=== PATIENT | female | born 1985 | race Caucasian/White ===

== ENCOUNTER 2016-08-12 14:10 | Inpatient (IN) | payer MEDICAID ==
--- NOTE | 2016-08-12 14:48 | EDPHY ---
H & P Smoking Status: Never smoked Time Seen by Provider: 08/12/16 14:17 HPI/ROS: Chief complaint. Abdominal pain HPI. 31-year-old female presents with abdominal pain nausea and vomiting for 1 and half months however worse today. Slight diarrhea. She describes right- sided crampy abdominal pain worse with movement. Decreased oral intake. No fever. No urinary symptoms. She carries a diagnosis of loin pain hematuria syndrome. ROS Constitutional. no fever/chills, no weakness Eyes. no problems with vision ENT. no sore throat, no nasal drainage Cardiovascular. no chest pain Respiratory. no shortness of breath, no cough Abdominal. Right mid abdominal pain with nausea vomiting and diarrhea . no problems urinating MS. no calf pain/swelling, no neck/back pain, no joint pain Skin. no rash Lymph. no swollen glands Neuro. no headache, no dizziness, no difficulty walking or with speech (Soto Bell) Past Medical/Surgical History: Chronic abdominal pain, seizure disorder (Soto Bell) Social History: Single, nonsmoker, no alcohol (Soto Bell) Physical Exam: General Appearance: Alert well-developed female moderate distress vital signs are stable Eyes: Pupils equal and round no pallor or injection. ENT, Mouth: Mucous membranes are moist. Respiratory: There are no retractions, lungs are clear to auscultation. Cardiovascular: Regular rate and rhythm. Gastrointestinal: Abdomen is soft with tenderness especially on the right side of the abdomen. No masses. Normal bowel sounds Neurological: Awake and alert, sensory and motor exams grossly normal. Skin: Warm and dry, no rashes. Musculoskeletal: Neck is supple nontender. Extremities symmetrical, full range of motion. Psychiatric: Patient is oriented X 3, there is no agitation. (Soto Bell) Constitutional: Initial Vital Signs Temperature (C) 36.9 C 08/12/16 14:22 Heart Rate 99 08/12/16 14:22 Respiratory Rate 18 08/12/16 14:22 Blood Pressure 140/100 H 08/12/16 14:22 O2 Sat (%) 99 08/12/16 14:22 O2 Delivery Mode Room Air Allergies/Adverse Reactions: nickel Allergy (Verified 08/12/16 14:20) Sulfa (Sulfonamide Antibiotics) Allergy (Verified 08/12/16 14:20) Home Medications: Medication Instructions Recorded Ambien 08/12/16 Fentanyl Patch 08/12/16 GABAPENTIN 08/12/16 Keppra 08/12/16 Oxycodone 08/12/16 Xanaflex 08/12/16 Zofran 08/12/16 Medical Decision Making - Diagnostics Imaging: Study: CT of the abdomen and pelvis Indication: Pain, vomiting Results: CT scan of the abdomen and pelvis was obtained. The results of the study are: 1. Minimal pericardial effusion. 2. No CT evidence of appendicitis, abscess or bowel obstruction. The study was read by the radiologist, Dr. Cameron Chavez. I viewed the images myself on the PACS system. (Roderick Khoury) Procedures: IV normal saline. 1 L of saline given. Reglan and Benadryl IV (Soto Bell) ED Course/Re-evaluation: 1541: Care of this patient was transferred to ar by Dr. Soto Bell at change of shift. 1639: Imaging results reported to me by Dr. Cameron Chavez, radiologist, who reports nothing acute. 1656: I shared imaging results with the patient. On reevaluation, the patient continues to complain of severe abdominal pain. Will administer 10mg IV Ketamine and 30mg IV Ketoralac for pain and continue to monitor here in the ED. Additional 1L IV NS administered. 1732: On reevaluation, the patient feels moderately improved with less abdominal pain than previously. Will administer 1mg IV Ativan and additional 10mg IV Ketamine for pain. 1752: On reevaluation the patient's pain has improved but she continues to complain of nausea. She is unable to sip water without vomiting. Plan for admission given the patient's intractable nausea. 1753: Consultation with Dr. Nisha Martínez, hospitalist, who accepts admission. ( Roderick Khoury) Care Turn Over: Dr. Khoury at 3:15 p.m. (Soto Bell) - Data Points Laboratory Results: Laboratory Results 08/12/16 15:00 08/12/16 15:00 08/12/16 08/12/16 08/12/16 15:30 15:00 15:00 WBC RBC Hgb Hct MCV MCH MCHC RDW Plt Count MPV Neut % (Auto) Lymph % (Auto) [place] % (Auto) Eos % (Auto) Baso % (Auto) Nucleat RBC Rel Count Absolute Neuts (auto) Absolute Lymphs (auto) Absolute Monos (auto) Absolute Eos (auto) Absolute Basos (auto) Absolute Nucleated RBC Immature Gran % Immature Gran # Sodium 142 mEq/L mEq/L (134-144) Potassium 4.0 mEq/L mEq/L (3.5-5.2) Chloride 104 mEq/L mEq/L (97-110) Carbon Dioxide 17 mEq/l L mEq/l (22-31) Anion Gap 21 mEq/L H mEq/L (8-16) BUN 10 mg/dL mg/dL (7-23) Creatinine 0.6 mg/dL mg/dL (0.6-1.0) Estimated GFR > 60 Glucose 90 mg/dL mg/dL (70-100) Calcium 10.8 mg/dL H mg/dL (8.5-10.4) Phosphorus 1.9 mg/dL L mg/dL (2.5-4.5) Total Bilirubin 1.0 mg/dL mg/dL (0.1-1.4) Conjugated Bilirubin 0.5 mg/dL mg/dL (0.0-0.5) Unconjugated Bilirubin 0.5 mg/dL mg/dL (0.0-1.1) AST 41 IU/L IU/L (14-46) ALT 47 IU/L IU/L (9-52) Alkaline Phosphatase 122 IU/L IU/L (38-126) Total Protein 8.5 g/dL H g/dL (6.3-8.2) Albumin 5.6 g/dL H g/dL (3.5-5.0) Lipase 108.0 IU/L IU/L (23-300) Beta HCG, Qual NEGATIVE Urine Color YELLOW Urine Appearance CLEAR Urine pH 5.0 (5.0-7.5) Ur Specific [place] 1.021 (1.002-1.030) Urine Protein 1+ H (NEGATIVE) Urine Ketones 2+ H (NEGATIVE) Urine Blood 2+ H (NEGATIVE) Urine Nitrate NEGATIVE (NEGATIVE) Urine Bilirubin NEGATIVE (NEGATIVE) Urine Urobilinogen NEGATIVE EU EU (0.2-1.0) Ur Leukocyte Esterase NEGATIVE (NEGATIVE) Urine RBC 1-3 /hpf /hpf (0-3) Urine WBC NONE SEEN /hpf /hpf (0-3) Ur Epithelial Cells TRACE /lpf /lpf (NONE-1+) Urine Mucus TRACE /lpf /lpf (NONE-1+) Ur Culture Indicated? NOT INDICATED (NI) Urine Glucose NEGATIVE (NEGATIVE) 08/12/16 15:00 WBC 7.66 10^3/uL 10^3/uL (3.80-9.50) RBC 5.52 10^6/uL H 10^6/uL (4.18-5.33) Hgb 15.7 g/dL g/dL (12.6-16.3) Hct 45.9 % % (38.0-47.0) MCV 83.2 fL fL (81.5-99.8) MCH 28.4 pg pg (27.9-34.1) MCHC 34.2 g/dL g/dL (32.4-36.7) RDW 12.0 % % (11.5-15.2) Plt Count 221 10^3/uL 10^3/uL (150-400) MPV 10.6 fL fL (8.7-11.7) Neut % (Auto) 87.1 % H % (39.3-74.2) Lymph % (Auto) 9.3 % L % (15.0-45.0) [place] % (Auto) 2.9 % L % (4.5-13.0) Eos % (Auto) 0.0 % L % (0.6-7.6) Baso % (Auto) 0.4 % % (0.3-1.7) Nucleat RBC Rel Count 0.0 % % (0.0-0.2) Absolute Neuts (auto) 6.68 10^3/uL H 10^3/uL (1.70-6.50) Absolute Lymphs (auto) 0.71 10^3/uL L 10^3/uL (1.00-3.00) Absolute Monos (auto) 0.22 10^3/uL L 10^3/uL (0.30-0.80) Absolute Eos (auto) 0.00 10^3/uL L 10^3/uL (0.03-0.40) Absolute Basos (auto) 0.03 10^3/uL 10^3/uL (0.02-0.10) Absolute Nucleated RBC 0.00 10^3/uL 10^3/uL (0-0.01) Immature Gran % 0.3 % % (0.0-1.1) Immature Gran # 0.02 10^3/uL 10^3/uL (0.00-0.10) Sodium Potassium Chloride Carbon Dioxide Anion Gap BUN Creatinine Estimated GFR Glucose Calcium Phosphorus Total Bilirubin Conjugated Bilirubin Unconjugated Bilirubin AST ALT Alkaline Phosphatase Total Protein Albumin Lipase Beta HCG, Qual Urine Color Urine Appearance Urine pH Ur Specific [place] Urine Protein Urine Ketones Urine Blood Urine Nitrate Urine Bilirubin Urine Urobilinogen Ur Leukocyte Esterase Urine RBC Urine WBC Ur Epithelial Cells Urine Mucus Ur Culture Indicated? Urine Glucose Medications Given: Discontinued Medications Diphenhydramine HCl (Benadryl Injection) 25 mg IVP EDNOW ONE Stop: 08/12/16 15:12 Last Admin: 08/12/16 15:19 Dose: 25 mg Sodium Chloride (Ns) 1,000 mls @ 0 mls/hr IV ONCE ONE PRN Reason: Wide Open Stop: 08/12/16 15:11 Last Admin: 08/12/16 15:19 Dose: 1,000 mls Sodium Chloride (Ns) 1,000 mls @ 0 mls/hr IV ONCE ONE PRN Reason: Wide Open Stop: 08/12/16 17:14 Last Admin: 08/12/16 17:14 Dose: 1,000 mls Ketamine HCl (Ketamine) 10 mg IVP EDNOW ONE Stop: 08/12/16 16:57 Last Admin: 08/12/16 17:13 Dose: 10 mg Ketamine HCl (Ketamine) 10 mg IVP EDNOW ONE Stop: 08/12/16 17:28 Last Admin: 08/12/16 17:43 Dose: 10 mg Ketorolac Tromethamine (Toradol) 30 mg IVP EDNOW ONE Stop: 08/12/16 16:58 Last Admin: 08/12/16 17:13 Dose: 30 mg Lorazepam (Ativan Injection) 1 mg IVP EDNOW ONE Stop: 08/12/16 17:34 Last Admin: 08/12/16 17:43 Dose: 1 mg Metoclopramide HCl (Reglan Injection) 10 mg IVP EDNOW ONE Stop: 08/12/16 15:12 Last Admin: 08/12/16 15:19 Dose: 10 mg Departure - Departure Disposition: [facility] Clinical Impression: Intractable nausea and vomiting Qualifiers: Vomiting type: unspecified Qualified Code(s): R11.2 - Nausea with vomiting, unspecified Abdominal pain Qualifiers: Abdominal location: generalized Qualified Code(s): R10.84 - Generalized abdominal pain Condition: Fair Referrals: Patient,NotPresent [Unknown] - As per Instructions
[2016-08-12] MEDS ORDERED: NS 1,000 ML IV ONE ×2 (15:10→17:13)
[2016-08-12] MEDS ORDERED: METOCLOPRAMIDE 10 MG/2 ML VIAL IVP ONE (15:11)
[2016-08-12 15:20] LABS: % IMMATURE GRANULYOCYTES 0.3 % (0.0-1.1); ABSOLUTE IMMATURE GRANULOCYTES 0.02 10^3/uL (0.00-0.10); ADD DIFF? NO; ADD MORPH? NO; ADD SCAN? NO; ATYPICAL LYMPHOCYTE FLAG 0 (0-99); FRAGMENT RBC FLAG 0 (0-99); HEMATOCRIT 45.9 % (38.0-47.0); HEMOGLOBIN 15.7 g/dL (12.6-16.3); LEFT SHIFT FLG 0 (0-99); LIPEMIA HEMOLYSIS FLAG 90 (0-99); MEAN CELL HEMOGLOBIN 28.4 pg (27.9-34.1); MEAN CELL HEMOGLOBIN CONCENTR. 34.2 g/dL (32.4-36.7); MEAN CELL VOLUME 83.2 fL (81.5-99.8); MEAN PLATELET VOLUME 10.6 fL (8.7-11.7); PLATELET CLUMPS FLAG 0 (0-99); PLATELET COUNT 221 10^3/uL (150-400); RED BLOOD CELL COUNT 5.52 10^6/uL (4.18-5.33)
[2016-08-12 15:44] LABS: ALANINE AMINOTRANSFERASE 47 IU/L (9-52); ALBUMIN 5.6 g/dL (3.5-5.0); ALKALINE PHOSPHATASE 122 IU/L (38-126); ANION GAP 21 mEq/L (8-16); ASPARTATE AMINOTRANSFERASE 41 IU/L (14-46); BILIRUBIN-CONJUGATED 0.5 mg/dL (0.0-0.5); BILIRUBIN-UNCONJUGATED 0.5 mg/dL (0.0-1.1); CALCIUM 10.8 mg/dL (8.5-10.4); CARBON DIOXIDE 17 mEq/l (22-31); CHLORIDE 104 mEq/L (97-110); CREATININE 0.6 mg/dL (0.6-1.0); GLOMERULAR FILTRATION RATE > 60; GLUCOSE 90 mg/dL (70-100); SODIUM 142 mEq/L (134-144); TOTAL PROTEIN 8.5 g/dL (6.3-8.2)
[2016-08-12 15:55] LABS: COLOR YELLOW; LEUKOCYTE ESTERASE,URINE NEGATIVE (NEGATIVE); NITRITE,URINE NEGATIVE (NEGATIVE)
[2016-08-12] MEDS ORDERED: IOPAMIDOL (ISOVUE-300) 100 ML BTL IV ONE (16:02)
[2016-08-12 16:05] LABS: MUCUS TRACE /lpf (NONE-1+)
[2016-08-12 16:06] LABS: WBC,URINE NONE SEEN /hpf (0-3)
[2016-08-12] MEDS ORDERED: KETAMINE 100 MG/10 ML SYR IVP ONE ×2 (16:56→17:29)
[2016-08-12] MEDS ORDERED: KETOROLAC 30 MG/1 ML SDV IVP ONE (16:57)
[2016-08-12] MEDS ORDERED: KETAMINE 500 MG/10 ML VIAL IVP ONE (17:27)
[2016-08-12] MEDS ORDERED: LORazepam 2 MG/ML INJ IVP ONE (17:33)
[2016-08-12] MEDS ORDERED: ACETAMINOPHEN 325 MG TAB PO PRN (21:44)
[2016-08-12] MEDS: D5W 1/2 NS W/ 20 KCl/L 1,000 ML IV SCH (21:58)
[2016-08-12] MEDS: ONDANSETRON 4 MG/2 ML VIAL IVP PRN (22:10)
[2016-08-12] MEDS: HYDROmorphONE/DILAUDID 1 MG/ML SYR IVP PRN (22:10)
--- NOTE | 2016-08-12 22:15 | GHP ---
[f rep st] HISTORY AND PHYSICAL DATE OF ADMISSION: 08/12/2016 CHIEF COMPLAINT: Abdominal pain. HISTORY OF PRESENT ILLNESS: This is a 31-year-old female with a history of chronic pain which is co ntinuously chronic kidney pain. She sees a pain medicine physician up in [place], Dr. Gannon. She yo s been having abdominal pain this time for the last month ago associated with nausea and vomiting. She says this pain is epigastric and is getting it all the time. She says she has not been able to eat, and thus, does not say if it is worse with eating. She is not having any fevers or chills. It is actually a little bit worse in the right side. She has not had pain like this before. REVIEW OF SYSTEMS: A 10-point review of systems was obtained and was negative. PAST MEDICAL HISTORY: Chronic kidney pain. MEDICATIONS: Reviewed and include fentanyl patch, gabapentin, ibuprofen, oxycodone, tizanidine. SOCIAL HISTORY: No smoking or alcohol. Lives with the mother. FAMILY HISTORY: Reviewed and noncontributory. PHYSICAL EXAM: VITAL SIGNS: Afebrile, blood pressure is 121/84, heart rate 99, oxygen saturation 9 6% on room air. GENERAL: The patient is crying, she is in a position. HEENT: Nonicteric sc lerae. Extraocular movements intact. Slightly dry mucous membranes. NECK: Supple. No thyromegal y. LUNGS: Good effort. Clear to auscultation bilaterally. CARDIOVASCULAR: Regular rate and rhyt hm. No murmurs or gallops. ABDOMEN: Positive bowel sounds. Soft. Some generalized tenderness, m ore on the right. No rebound or guarding. EXTREMITIES: No clubbing, cyanosis, or edema. SKIN: W ithout rash, dry, intact. NEUROLOGIC: Alert and oriented x3, moving all 4 extremities equally. PS YCH: Normal mood and affect. STUDIES: On labs CBC is normal. Chemistry is essentially normal, though phosphorus is low. CT scan the abdomen and pelvis shows her normal abdominal general abdomen, though with no rmal gallbladder and appendix. ASSESSMENT: This is a 31-year-old female with chronic pain presenting with abdominal pain for one m onth. PLAN: 1. Abdominal pain. The patient will be admitted under observation. Will give some pain medicine f or control and antiemetics, since she is on an NSAID. Will make n.p.o. after midnight and consider consulting Gastroenterology for possible endoscopy. I have also considered HIDA scan; although at t his point with her chronic pain syndrome, would be a little bit hesitant in terms of taking her gall bladder out just , even if she had an abnormal HIDA. She does have normal LFTs and maria victoria l gallbladder on CT scan. We will empirically treat with PPI. 2. Chronic pain. Will continue her medications. /[id number]/MODL
[2016-08-12] MEDS: GABAPENTIN 400 MG CAP PO SCH (23:31)
[2016-08-12] MEDS: levETIRAcetam 500 MG TAB PO SCH (23:32)
[2016-08-12] MEDS: ZOLPIDEM TARTRATE 5 MG TAB PO PRN (23:32)
[2016-08-12] MEDS: oxyCODONE IR 5 MG TAB PO PRN (23:32)
[2016-08-12] MEDS: ONDANSETRON DISINTEGRATING 4 MG TAB PO PRN (23:33)
[2016-08-12] MEDS: PANTOPRAZOLE SODIUM 40 MG TAB PO SCH (23:51)
[2016-08-13] MEDS: HYDROmorphONE/DILAUDID 1 MG/ML SYR IVP PRN ×4 (03:23→21:09)
[2016-08-13] MEDS: oxyCODONE IR 5 MG TAB PO PRN ×2 (05:39→21:08)
[2016-08-13] MEDS: ONDANSETRON DISINTEGRATING 4 MG TAB PO PRN (05:40)
[2016-08-13] MEDS: ONDANSETRON 4 MG/2 ML VIAL IVP PRN ×3 (06:53→21:09)
[2016-08-13] MEDS: levETIRAcetam 500 MG TAB PO SCH ×2 (08:23→21:07)
[2016-08-13] MEDS: GABAPENTIN 400 MG CAP PO SCH ×3 (08:23→21:07)
[2016-08-13] MEDS: PANTOPRAZOLE SODIUM 40 MG TAB PO SCH ×2 (08:24→21:07)
[2016-08-13] MEDS: D5W 1/2 NS W/ 20 KCl/L 1,000 ML IV SCH (08:44)
--- NOTE | 2016-08-13 11:13 | HOSPPROG ---
Hospitalist Progress Note Assessment/Plan: # Acute Generalized Abd Pain with weight loss, etiology is unclear, unremarkable CT scan -On chronic Narcotics -Denies illicit drug use including THC -No NSAID use -Cont NPO -Cont PPI BID -Will get HIDA -Consult GI, will notify. -Nutrition Consult #Chronic Pain Syndrome, bilateral kidney pain -cont home meds #Seizure D/O -on keppra #Insomnia -On Ambien DVT proph: SCD Code: Full code Dispo: keep overnight. Subjective: still with generalized abd pain. No n/v. BM yesterday. No signs of obstruction. First encounter with this patient Objective: Vital Signs Temp Pulse Resp BP Pulse Ox 36.9 C 85 17 116/78 97 08/13/16 08:07 08/13/16 08:07 08/13/16 08:07 08/13/16 08:07 08/13/16 08:07 08/12/16 08/13/16 08/14/16 05:59 05:59 05:59 Intake Total 1999 Balance 1999 - Physical Exam Constitutional: no apparent distress, appears nourished, not in pain Eyes: PERRL, anicteric sclera, EOMI Ears, Nose, Mouth, Throat: moist mucous membranes, hearing normal, ears appear normal, no oral mucosal ulcers Cardiovascular: regular rate and rhythym, no murmur, rub, or gallop Respiratory: no respiratory distress, no rales or rhonchi, clear to auscultation Gastrointestinal: tenderness (generalized), No guarding, No rebound, No distension Genitourinary: no bladder fullness Skin: warm, normal color Musculoskeletal: No generalized weakness Neurologic: AAOx3, sensation intact bilaterally Psychiatric: interacting appropriately, not anxious, not encephalopathic ICD10 Worksheet Patient Problems: Problems Problem Status Onset Abdominal pain Acute Intractable nausea and vomiting Acute
[2016-08-13] MEDS ORDERED: SINCALIDE 5 MCG VIAL IJ ONE (14:59)
[2016-08-13] MEDS: ZOLPIDEM TARTRATE 5 MG TAB PO PRN (21:20)
[2016-08-14] MEDS: fentaNYL 75 MCG PATCH TD SCH (00:15)
[2016-08-14] MEDS: HYDROmorphONE/DILAUDID 1 MG/ML SYR IVP PRN ×5 (02:46→21:05)
[2016-08-14] MEDS: D5W 1/2 NS W/ 20 KCl/L 1,000 ML IV SCH (02:51)
[2016-08-14] MEDS: ONDANSETRON 4 MG/2 ML VIAL IVP PRN ×4 (02:51→21:12)
[2016-08-14 06:00] LABS: % IMMATURE GRANULYOCYTES 0.3 % (0.0-1.1); ABSOLUTE IMMATURE GRANULOCYTES 0.01 10^3/uL (0.00-0.10); ADD DIFF? NO; ADD MORPH? NO; ADD SCAN? NO; ATYPICAL LYMPHOCYTE FLAG 0 (0-99); FRAGMENT RBC FLAG 0 (0-99); HEMATOCRIT 38.9 % (38.0-47.0); HEMOGLOBIN 13.1 g/dL (12.6-16.3); LEFT SHIFT FLG 0 (0-99); LIPEMIA HEMOLYSIS FLAG 80 (0-99); MEAN CELL HEMOGLOBIN 29.2 pg (27.9-34.1); MEAN CELL HEMOGLOBIN CONCENTR. 33.7 g/dL (32.4-36.7); MEAN CELL VOLUME 86.6 fL (81.5-99.8); MEAN PLATELET VOLUME 11.1 fL (8.7-11.7); PLATELET CLUMPS FLAG 0 (0-99); PLATELET COUNT 162 10^3/uL (150-400); RED BLOOD CELL COUNT 4.49 10^6/uL (4.18-5.33); RED CELL DISTRIBUTION WIDTH 12.2 % (11.5-15.2)
[2016-08-14] MEDS: ONDANSETRON DISINTEGRATING 4 MG TAB PO PRN (06:09)
[2016-08-14] MEDS: oxyCODONE IR 5 MG TAB PO PRN ×2 (06:09→21:05)
[2016-08-14 06:14] LABS: ALANINE AMINOTRANSFERASE 38 IU/L (9-52); ALBUMIN 3.9 g/dL (3.5-5.0); ALKALINE PHOSPHATASE 73 IU/L (38-126); ANION GAP 10 mEq/L (8-16); ASPARTATE AMINOTRANSFERASE 33 IU/L (14-46); BILIRUBIN,TOTAL 0.7 mg/dL (0.1-1.4); CALCIUM 9.3 mg/dL (8.5-10.4); CARBON DIOXIDE 23 mEq/l (22-31); CHLORIDE 107 mEq/L (97-110); CREATININE 0.6 mg/dL (0.6-1.0); GLOMERULAR FILTRATION RATE > 60; GLUCOSE 97 mg/dL (70-100); MAGNESIUM 1.7 mg/dL (1.6-2.3); POTASSIUM 4.1 mEq/L (3.5-5.2); SODIUM 140 mEq/L (134-144); TOTAL PROTEIN 5.8 g/dL (6.3-8.2)
[2016-08-14] MEDS ORDERED: fentaNYL 75 MCG PATCH TD SCH (09:00)
[2016-08-14] MEDS: levETIRAcetam 500 MG TAB PO SCH ×2 (13:45→21:07)
[2016-08-14] MEDS: PANTOPRAZOLE SODIUM 40 MG TAB PO SCH ×2 (13:45→21:07)
[2016-08-14] MEDS: GABAPENTIN 400 MG CAP PO SCH ×2 (13:46→21:06)
[2016-08-14] MEDS ORDERED: SCOPOLAMINE HYDROBROMIDE 1.5 MG PATCH TD ONE (15:05)
[2016-08-14] MEDS ORDERED: HYOSCYAMINE SULFATE 0.125 MG TAB PO PRN (15:10)
--- NOTE | 2016-08-14 15:10 | HOSPPROG ---
Hospitalist Progress Note Assessment/Plan: 31 yo f w chronic pain and chronic narcotic dependence as well as ptsd here w abd pain and neg workup low gall bladder ef: 2/2 narcotics normal lfts and no carreno's not an indication for cholecystectomy nausea: afte reating: add scopolamine patch declines phenergan suppository 2/2 ptsd abd pain: functional on basis of negative workup trial of levsin ct scan normal (images reviewed/interp by me). afebrile no rebound proph: add lmwh chronic pain: continue home meds dispo: inpt Subjective: still w nausea, food avoidance Objective: Vital Signs Temp Pulse Resp BP Pulse Ox 36.9 C 61 18 152/92 H 95 08/14/16 07:19 08/14/16 07:19 08/14/16 07:19 08/14/16 07:19 08/14/16 07:19 Laboratory Results 08/14/16 05:39 08/14/16 05:39 08/13/16 08/14/16 08/15/16 05:59 05:59 05:59 Intake Total 1000 Balance 1000 - Physical Exam Constitutional: no apparent distress, appears nourished Eyes: PERRL, anicteric sclera Ears, Nose, Mouth, Throat: moist mucous membranes, hearing normal Cardiovascular: regular rate and rhythym, no murmur, rub, or gallop Respiratory: no respiratory distress, no rales or rhonchi Gastrointestinal: normoactive bowel sounds, soft, non-tender abdomen, No guarding, No rebound Genitourinary: no bladder fullness, No lim in urethra Skin: warm, normal color Musculoskeletal: full muscle strength Neurologic: AAOx3, sensation intact bilaterally Psychiatric: interacting appropriately ICD10 Worksheet Patient Problems: Problems Problem Status Onset Abdominal pain Acute Intractable nausea and vomiting Acute
[2016-08-14] MEDS: SCOPOLAMINE HYDROBROMIDE 1.5 MG PATCH TD SCH (17:04)
[2016-08-14] MEDS: ZOLPIDEM TARTRATE 5 MG TAB PO PRN (21:06)
[2016-08-15] MEDS: HYDROmorphONE/DILAUDID 1 MG/ML SYR IVP PRN ×4 (00:59→13:59)
[2016-08-15] MEDS: oxyCODONE IR 5 MG TAB PO PRN ×3 (04:13→20:56)
[2016-08-15 06:11] LABS: ANION GAP 15 mEq/L (8-16); CALCIUM 9.7 mg/dL (8.5-10.4); CARBON DIOXIDE 23 mEq/l (22-31); CHLORIDE 103 mEq/L (97-110); CREATININE 0.7 mg/dL (0.6-1.0); GLOMERULAR FILTRATION RATE > 60; GLUCOSE 67 mg/dL (70-100); SODIUM 141 mEq/L (134-144)
[2016-08-15] MEDS: GABAPENTIN 400 MG CAP PO SCH ×4 (07:25→20:55)
[2016-08-15] MEDS: ONDANSETRON 4 MG/2 ML VIAL IVP PRN ×2 (07:40→13:59)
[2016-08-15] MEDS: PANTOPRAZOLE SODIUM 40 MG TAB PO SCH ×2 (07:41→20:55)
[2016-08-15] MEDS: levETIRAcetam 500 MG TAB PO SCH ×2 (07:41→20:56)
--- NOTE | 2016-08-15 16:52 | HOSPPROG ---
Hospitalist Progress Note Assessment/Plan: 31 yo f w chronic pain and chronic narcotic dependence as well as ptsd here w abd pain and neg workup low gall bladder ef: 2/2 narcotics normal lfts and no carreno's not an indication for cholecystectomy nausea: afte reating: add scopolamine patch declines phenergan suppository 2/2 ptsd abd pain: functional on basis of negative workup trial of levsin ct scan normal afebrile no rebound dc IV pain meds DO NOT GIVE IV PAIN MEDS IN CROSS COVER proph: add lmwh chronic pain: continue home meds dispo: inpt Subjective: tolerating pills. nursing notes "vomit" is saliva. concerned she is dehydrated Objective: Vital Signs Temp Pulse Resp BP Pulse Ox 37.0 C 80 16 136/89 H 96 08/15/16 08:00 08/15/16 08:00 08/15/16 08:00 08/15/16 08:00 08/15/16 08:00 Laboratory Results 08/14/16 05:39 08/15/16 05:32 08/14/16 08/15/16 08/16/16 05:59 05:59 05:59 Intake Total 1000 650 Balance 1000 650 - Physical Exam Constitutional: no apparent distress, appears nourished Eyes: PERRL, anicteric sclera Ears, Nose, Mouth, Throat: moist mucous membranes, hearing normal Cardiovascular: regular rate and rhythym, no murmur, rub, or gallop Respiratory: no respiratory distress, no rales or rhonchi Gastrointestinal: normoactive bowel sounds, soft, non-tender abdomen Genitourinary: No lim in urethra Skin: warm, normal color Musculoskeletal: full muscle strength, no muscle tenderness Neurologic: AAOx3 ICD10 Worksheet Patient Problems: Problems Problem Status Onset Abdominal pain Acute Intractable nausea and vomiting Acute
[2016-08-15] MEDS: ENOXAPARIN 40 MG/0.4 ML SYR SC SCH (17:32)
[2016-08-15] MEDS: HYDROmorphONE/DILAUDID 4 MG TAB PO PRN (22:40)
[2016-08-16] MEDS: ONDANSETRON DISINTEGRATING 4 MG TAB PO PRN ×2 (05:40→21:03)
[2016-08-16] MEDS: oxyCODONE IR 5 MG TAB PO PRN ×2 (05:41→19:49)
[2016-08-16] MEDS: HYDROmorphONE/DILAUDID 4 MG TAB PO PRN ×2 (08:25→21:06)
[2016-08-16 13:00] LABS: ANION GAP 23 mEq/L (8-16); CALCIUM 10.2 mg/dL (8.5-10.4); CARBON DIOXIDE 14 mEq/l (22-31); CHLORIDE 101 mEq/L (97-110); CREATININE 0.7 mg/dL (0.6-1.0); GLOMERULAR FILTRATION RATE > 60; GLUCOSE 56 mg/dL (70-100); POTASSIUM 4.2 mEq/L (3.5-5.2); SODIUM 138 mEq/L (134-144)
[2016-08-16] MEDS ORDERED: D5W NS 1,000 ML IV SCH (15:00)
[2016-08-16] MEDS ORDERED: PROMETHAZINE HCL 25 MG/ML INJ IVP ONE (15:00)
[2016-08-16] MEDS ORDERED: NS 1,000 ML IV SCH (15:00)
[2016-08-16] MEDS: GABAPENTIN 400 MG CAP PO SCH ×3 (16:29→21:06)
[2016-08-16] MEDS: PANTOPRAZOLE SODIUM 40 MG TAB PO SCH ×2 (16:29→21:08)
[2016-08-16] MEDS: levETIRAcetam 500 MG TAB PO SCH ×2 (16:29→21:04)
[2016-08-16] MEDS: ENOXAPARIN 40 MG/0.4 ML SYR SC SCH (16:30)
[2016-08-16] MEDS ORDERED: HYDROmorphONE/DILAUDID 1 MG/ML SYR IVP ONE (17:12)
[2016-08-16] MEDS ORDERED: LORazepam 2 MG/ML INJ IVP ONE (17:12)
--- NOTE | 2016-08-16 17:15 | HOSPPROG ---
Hospitalist Progress Note Assessment/Plan: 31 yo f w chronic pain and chronic narcotic dependence as well as ptsd here w abd pain and neg workup AGMA: startvation ketosis d5ns repeat in AM low gall bladder ef: 2/2 narcotics normal lfts and no carreno's not an indication for cholecystectomy nausea: aftereating: add scopolamine patch declines phenergan suppository 2/2 ptsd abd pain: functional on basis of negative workup trial of levsin ct scan normal afebrile no rebound dc IV pain meds proph: add lmwh chronic pain: continue home meds dispo: inpt Subjective: poor po intake as evidenced by kotoacidosis on labs Objective: Vital Signs Temp Pulse Resp BP Pulse Ox 36.9 C 94 14 133/88 H 100 08/16/16 09:00 08/16/16 09:00 08/16/16 09:00 08/16/16 09:00 08/16/16 09:00 Laboratory Results 08/14/16 05:39 08/16/16 12:35 08/15/16 08/16/16 08/17/16 05:59 05:59 05:59 Intake Total 650 400 Balance 650 400 - Physical Exam Constitutional: no apparent distress, appears nourished Eyes: PERRL, anicteric sclera Ears, Nose, Mouth, Throat: moist mucous membranes, hearing normal Cardiovascular: regular rate and rhythym, no murmur, rub, or gallop, No tachycardia Respiratory: no respiratory distress Gastrointestinal: normoactive bowel sounds, No guarding, No rebound Genitourinary: No lim in urethra Skin: warm, normal color Musculoskeletal: full muscle strength, no muscle tenderness Neurologic: AAOx3 ICD10 Worksheet Patient Problems: Problems Problem Status Onset Abdominal pain Acute Intractable nausea and vomiting Acute
[2016-08-16] MEDS: ZOLPIDEM TARTRATE 5 MG TAB PO PRN (21:08)
[2016-08-17] MEDS: HYDROmorphONE/DILAUDID 4 MG TAB PO PRN (01:04)
[2016-08-17] MEDS: fentaNYL 75 MCG PATCH TD SCH (01:06)
[2016-08-17] MEDS: ONDANSETRON DISINTEGRATING 4 MG TAB PO PRN ×3 (05:14→21:28)
[2016-08-17] MEDS: oxyCODONE IR 5 MG TAB PO PRN ×3 (05:15→21:29)
[2016-08-17 05:58] LABS: ALANINE AMINOTRANSFERASE 54 IU/L (9-52); ALBUMIN 5.9 g/dL (3.5-5.0); ALKALINE PHOSPHATASE 129 IU/L (38-126); ANION GAP 25 mEq/L (8-16); ASPARTATE AMINOTRANSFERASE 41 IU/L (14-46); CALCIUM 10.9 mg/dL (8.5-10.4); CARBON DIOXIDE 11 mEq/l (22-31); CHLORIDE 105 mEq/L (97-110); CREATININE 0.6 mg/dL (0.6-1.0); GLOMERULAR FILTRATION RATE > 60; GLUCOSE 111 mg/dL (70-100); POTASSIUM 4.1 mEq/L (3.5-5.2); SODIUM 141 mEq/L (134-144); TOTAL PROTEIN 9.2 g/dL (6.3-8.2)
[2016-08-17] MEDS: GABAPENTIN 400 MG CAP PO SCH ×4 (08:50→21:27)
[2016-08-17] MEDS: levETIRAcetam 500 MG TAB PO SCH ×3 (08:51→21:29)
[2016-08-17] MEDS: ENOXAPARIN 40 MG/0.4 ML SYR SC SCH (08:51)
[2016-08-17] MEDS: PANTOPRAZOLE SODIUM 40 MG TAB PO SCH ×2 (08:51→21:27)
[2016-08-17] MEDS: ONDANSETRON 4 MG/2 ML VIAL IVP PRN (09:02)
[2016-08-17] MEDS ORDERED: METOCLOPRAMIDE 10 MG/2 ML VIAL IVP PRN (11:43)
[2016-08-17] MEDS ORDERED: PROMETHAZINE HCL 25 MG/ML INJ IVP ONE (12:00)
[2016-08-17] MEDS ORDERED: HYDROmorphONE/DILAUDID 1 MG/ML SYR IVP PRN (12:07)
--- NOTE | 2016-08-17 12:13 | HOSPPROG ---
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 RUQ u/s to ensure she doesnt have cholecystitis 2. dc IV pain meds when taking po's 3. she denied previous hospitalizations, clearly not the case based on [facility] review. I will discuss this with her when ultrasound results have returned proph: add lmwh chronic pain: continue home meds dispo: inpt 45' spent on care Subjective: 40' spent reviewing [facility] records. I have read at least 4 discharge summaries that detail hospitalizations very similar to this one- vomiting without clear demonstration of vomiting, high pain medication tolerance and negative workups. states unable to tolerate po's today Objective: Vital Signs Temp Pulse Resp BP Pulse Ox 37.1 C 90 20 124/93 H 96 08/17/16 08:00 08/17/16 08:00 08/17/16 08:00 08/17/16 08:00 08/17/16 08:00 Laboratory Results 08/14/16 05:39 08/17/16 05:40 08/16/16 08/17/16 08/18/16 05:59 05:59 05:59 Intake Total 400 1400 Balance 400 1400 - Physical Exam Constitutional: appears nourished, No no apparent distress Eyes: PERRL, anicteric sclera Ears, Nose, Mouth, Throat: moist mucous membranes, hearing normal Cardiovascular: regular rate and rhythym, no murmur, rub, or gallop Respiratory: no respiratory distress, no rales or rhonchi Gastrointestinal: normoactive bowel sounds, soft, non-tender abdomen Genitourinary: No lim in urethra Skin: warm, normal color Musculoskeletal: full muscle strength Neurologic: AAOx3 ICD10 Worksheet Patient Problems: Problems Problem Status Onset Abdominal pain Acute Intractable nausea and vomiting Acute
[2016-08-17] MEDS: SCOPOLAMINE HYDROBROMIDE 1.5 MG PATCH TD SCH (17:54)
[2016-08-17] MEDS: ZOLPIDEM TARTRATE 5 MG TAB PO PRN (21:30)
[2016-08-18] MEDS: ONDANSETRON DISINTEGRATING 4 MG TAB PO PRN ×2 (04:03→08:41)
[2016-08-18] MEDS: GABAPENTIN 400 MG CAP PO SCH ×2 (04:09→09:56)
[2016-08-18] MEDS: levETIRAcetam 500 MG TAB PO SCH ×2 (04:12→09:56)
[2016-08-18 08:30] VITALS: BP 150/98; PULSE 103; RESP 17; TEMP 98.3; O2SAT 97
[2016-08-18] MEDS: SCOPOLAMINE HYDROBROMIDE 1.5 MG PATCH TD SCH (08:41)
[2016-08-18] MEDS: PANTOPRAZOLE SODIUM 40 MG TAB PO SCH (08:41)
[2016-08-18] MEDS: ENOXAPARIN 40 MG/0.4 ML SYR SC SCH (09:57)
--- NOTE | 2016-08-18 11:14 | HOSPPROG ---
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 RUQ u/s to ensure she doesnt have cholecystitis 2. dc IV pain meds when taking po's 3. she denied previous hospitalizations, clearly not the case based on [facility] review. I will discuss this with her when ultrasound results have returned proph: add lmwh chronic pain: continue home meds dispo: homt today > 30 min Subjective: trying to eat. amenable to dc Objective: Vital Signs Temp Pulse Resp BP Pulse Ox 36.8 C 103 H 17 150/98 H 97 08/18/16 08:00 08/18/16 08:00 08/18/16 08:00 08/18/16 08:00 08/18/16 08:00 Laboratory Results 08/14/16 05:39 08/17/16 05:40 08/17/16 08/18/16 08/19/16 05:59 05:59 05:59 Intake Total 1400 Balance 1400 - Physical Exam Constitutional: no apparent distress, appears nourished Eyes: PERRL, anicteric sclera Ears, Nose, Mouth, Throat: moist mucous membranes, hearing normal Cardiovascular: regular rate and rhythym, no murmur, rub, or gallop Respiratory: no respiratory distress, no rales or rhonchi Gastrointestinal: normoactive bowel sounds, No guarding, No rebound Genitourinary: no bladder fullness, No lim in urethra Skin: warm Musculoskeletal: full muscle strength Neurologic: AAOx3 Psychiatric: interacting appropriately ICD10 Worksheet Patient Problems: Problems Problem Status Onset Abdominal pain Acute Intractable nausea and vomiting Acute
[2016-08-18] MEDS ORDERED: PROMETHAZINE HCL 25 MG/ML INJ IVP ONE (11:30)
--- NOTE | 2016-08-18 11:50 | GDS ---
[f rep st] DISCHARGE SUMMARY DISCHARGE DIAGNOSES: 1. Chronic abdominal pain. 2. Modestly elevated LFTs. 3. Nausea and vomiting. 4. Anxiety, depression. 5. Chronic pain with continuous narcotic dependence. 6. Posttraumatic stress disorder. HOSPITAL COURSE: Please see admission history and physical by Dr. Nisha Martínez. The patient presente d with abdominal pain. She was afebrile with normal labs, no white count. She had negative pregnan cy test. She had an essentially normal CT. She had a HIDA scan showing a low gallbladder ejection fraction which was consistent with chronic narcotic use. She developed modestly elevated LFTs and a slightly elevated lipase in the setting of possible vomiting. She had a right upper quadrant ultra sound showing no evidence of acute cholecystitis. She did have hepatic steatosis which accounts for transaminitis. I searched [facility] and found the patient had multiple similar admissions to outside hospitals over last couple years where she had a vomiting syndrome where her vomit looked more like spit. There was narcotic use here. There extra pill bottles found in her room. She was eating poorly. In fact , she got some starvation ketosis because of poor p.o. intake. Ultimately, I discussed all of these findings with her in a marshal but compassionate way, and the pat ient is amenable to discharge. I did provide her with prescriptions for oral and rectal Phenergan. /[id number]/MODL
[2016-08-18] MEDS ORDERED: fentaNYL 75 MCG PATCH TD ONE (12:00)
== END 2016-08-18 13:13 | disposition home or self-care (01) | DRG 92 ==
LOC: F1N 19:32 → OBSVTOIN 08-13 11:15
PROVIDERS: ADMIT Internal Medicine; ATTEND Internal Medicine
DX: G89.29 Other chronic pain (principal); F11.20 Opioid dependence, uncomplicated; N23 Unspecified renal colic; R11.2 Nausea with vomiting, unspecified; F41.8 Other specified anxiety disorders; F43.10 Post-traumatic stress disorder, unspecified; K76.0 Fatty (change of) liver, not elsewhere classified; G89.4 Chronic pain syndrome; G40.909 Epilepsy, unspecified, not intractable, without status epilepticus; G47.00 Insomnia, unspecified
CPT/HCPCS: 96374; A9537; G0378; J1170; J1200; J1650; J1885; J2060; J2405; J2550; J2765; Q9967